=== PATIENT | female | born 1990 | race African-American/Black ===

== ENCOUNTER 2017-01-18 09:20 | Emergency (ER) | payer MEDICAID ==
--- NOTE | 2017-01-18 09:45 | ED Physician Chart ---
Chief Complaint/HPI - Patient Information Date Seen:: 01/18/17 Time Seen:: 09:25 Chief Complaint:: pruritic skin lesions History of Present Illness:: For about the last 2 months this patient has had pruritic crusts widespread over several areas of her body. Allergies:: Allergies Allergy/AdvReac Type Severity Reaction Status Date / Time No Known Allergies Allergy Verified 01/18/17 09:25 Vitals:: Vital Signs - 8 hr 01/18/17 09:20 Temp 97.0 F HR 86 RR 16 BP 151/84 O2 Sat % 99 Historian:: Patient Review:: Nurse's Note Reviewed Review of Systems - Review of Systems General/Constitutional: No fever, No chills Skin: Skin lesions Head: No headache Eyes: No loss of vision ENT: No earache Neck: No neck pain Cardio Vascular: No chest pain Pulmonary: No SOB GI: No nausea, No vomiting, No diarrhea G/U: No dysuria Musculoskeletal: No bone or joint pain, No back pain, No muscle pain Endocrine: No polyuria, Polydipsia Psychiatric: No prior psych history, No depression, No anxiety Hematopoietic: No bruising Allergic/Immuno: Urticaria Neurological: No syncope, No focal symptoms, No weakness Past Medical History - Past Medical History Past Medical History: No significant medical hx Family History: None Social History: Non Smoker, No Alcohol Surgical History: None Psychiatricy History: None Medication: None Family Medical History - Family Member Mother Other Medical History: denies family medical hx Physical Exam - Physical Examination General/Constitutional: Well-developed, well-nourished, Alert Head: Atraumatic Eyes: Lids, conjuctiva normal, PERRL Other Skin comments:: There are elevated crusts: 2 cm dorsum proximal left foot; 1 cm dorsal webspace index and long finger left hand; 1 cm lateral. The crust on the left foot exudes a slight amount of clear fluid with pressure. ENMT: External ears, nose nl Neck: No nuchal rigidity Cardio Vascular: RRR, No murmur, gallop, rubs, NL S1 S2 GI: No tenderness/rebounding/guarding, No organomegaly, No hernia : No CVA tenderness Other Extremities comments:: See above under skin Neuro/Psych: Alert/oriented Misc: Normal back ED Septic Shock - . Is Septic Shock (SBP<90, OR Lactate>4 mmol\L) present?: No - <6hrs of presentation: Vital Signs: Vital Signs - 8 hr 01/18/17 09:20 Temp 97.0 F HR 86 RR 16 BP 151/84 O2 Sat % 99 Reassessment (Disposition) - Reassessment Reassessment Condition:: Unchanged - Diagnosis Diagnosis:: Impetigo - Aftercare/Follow up Instructions Aftercare/Follow-Up Instructions:: Refer to Discharge Instructions Medication Prescribed:: Atarax 25 mg #30 one 4 times a day when necessary; Bactroban 15 g to apply 3 times a day to new Lesions - Patient Disposition Discharge/Transfer:: Home Condition at Disposition:: Stable, Unchanged
== END 2017-01-18 09:50 | disposition home or self-care (01) ==
LOC: ER 09:20
DX: L01.00 Impetigo, unspecified (principal)
CPT/HCPCS: J7030; Z7502